=== PATIENT | male | born 1975 | race Caucasian/White ===

== ENCOUNTER 2018-10-24 18:40 | Emergency (ER) | payer BC, OTHER ==
[~2018-10-24] VITALS: Ht 177.8 cm; Wt 95.3 kg
[2018-10-24] MEDS ORDERED: NACL 0.9% 1,000 ML IV ONE (18:42)
[2018-10-24 18:43] VITALS: BP_SYST 132
[2018-10-24] MEDS ORDERED: ASPIRIN 81 MG TAB.CHEW PO ONE (18:45)
[2018-10-24] MEDS ORDERED: CLOPIDOGREL BISULFATE 75 MG TABLET PO ONE (18:45)
[2018-10-24 19:13] LABS: BASOPHILS # (AUTO) 0.1 K/uL (0.0-0.2)
[2018-10-24 19:15] LABS: RED BLOOD CELL COUNT(AUTO) 5.17 MIL/uL (4.2-6.2)
[2018-10-24 19:20] LABS: ANION GAP 7 (5-15); BASOPHILS % (AUTO) 1.6 % (0.0-2.0); CALCIUM 8.6 mg/dL (8.4-11.0); CHLORIDE 104 mmol/L (98-107); CREATININE 0.89 mg/dL (0.55-1.30); EOSINOPHILS # (AUTO) 0.2 K/uL (0.0-0.4); EOSINOPHILS % (AUTO) 4.1 % (0.0-4.0); GLUCOSE 100 mg/dL (70-99); HEMATOCRIT 44.2 % (36-54); HEMOGLOBIN 13.7 g/dL (14.0-18.0); LYMPHOCYTES # (AUTO) 2.2 K/uL (1.0-5.5); LYMPHOCYTES % (AUTO) 36.3 % (20.5-51.5); MEAN CORPUSCULAR HEMOGLOBIN 27 pg (27-31); MEAN CORPUSCULAR HGB CONC 31 % (32-36); MEAN CORPUSCULAR VOLUME 86 fL (79.0-98.0); MONOCYTES # (AUTO) 0.4 K/uL (0.0-1.0); MONOCYTES % (AUTO) 6.9 % (1.7-9.3); NEUTROPHILS # (AUTO) 3.1 K/uL (1.8-7.7); NEUTROPHILS % (AUTO) 51.1 % (40.0-70.0); PLATELET COUNT (AUTO) 269 K/uL (130-430); POTASSIUM 3.6 mmol/L (3.5-5.1); SODIUM SERUM 138 mmol/L (136-145); UREA NITROGEN, BLOOD 13 mg/dL (8-21)
[2018-10-24 19:21] LABS: GFR AFRICAN AMERICAN 119 mL/min (>90)
[2018-10-24 19:26] LABS: INR 1.1 (0.80-1.20); PROTHROMBIN TIME 10.6 SECS (9.5-12.5)
[2018-10-24 19:27] LABS: ALANINE AMINOTRANSFERASE 41 U/L (12-78); ALBUMIN 3.7 g/dL (3.4-4.8); AMYLASE 76 U/L (0-100); ASPARTATE AMINOTRANSFERASE 23 U/L (10-37); LIPASE 121 U/L (73-393); TOTAL BILIRUBIN 0.5 mg/dL (0.0-1.0)
[2018-10-24 19:28] LABS: ALCOHOL, BLOOD < 3 mg/dL (<10)
[2018-10-24 19:34] LABS: ACETAMINOPHEN < 1 ug/mL (1-30)
[2018-10-24 20:18] VITALS: BP_SYST 138
== END 2018-10-24 20:18 | disposition home or self-care (01) ==
LOC: SED 18:40
DX: R20.2 Paresthesia of skin (principal); Z88.1 Allergy status to other antibiotic agents
CPT/HCPCS: 36415; 71045; 80053; 82150; 82550; 83690; 84484; 85025; 85379; 85610; 85730; 93005; 96360; 99284; G0480; G0481; G0482; J7030